=== PATIENT | female | born 1950 | race Caucasian/White ===

== ENCOUNTER 2018-11-24 08:07 | Emergency (ER) | payer MEDICARE ==
[2018-11-24 08:14] VITALS: TEMP 98.3
[2018-11-24] MEDS ORDERED: SODIUM CHLORIDE 0.9% 1,000 ML IV STA ×2 (08:29)
[2018-11-24] MEDS ORDERED: ASPIRIN 81 MG PO STA (08:29)
[2018-11-24] MEDS ORDERED: MAG HYDROX/AL HYDROX/SIMETH 30 ML, HYOSCYAMINE ELIXIR 10 ML, CIMETIDINE HCL 300 MG, LID... PO STA ×4 (08:30)
[2018-11-24] MEDS ORDERED: IPRATROPIUM-ALBUTEROL 3 ML NEB INHALATION STA (08:32)
--- NOTE | 2018-11-24 08:35 | ED ---
Chest Pain HPI - General Chief Complaint: Chest Pain Stated Complaint: Chest pain Time Seen by Provider: 11/24/18 08:22 Source: patient, RN notes reviewed, old records reviewed Mode of arrival: ambulatory Limitations: no limitations - History of Present Illness Initial Comments: Patient is a 68-year-old female presents emergency department today with onset of chest discomfort, GERD-like symptoms last night. Patient reports she took multiple pain medications but with little relief. She states that now the pain is radiating up towards her jaw and neck. Patient states that she has had no cardiac history. She is recently started erythromycin for an upper respiratory infection. Patient denies any vomiting or abdominal pain. - Related Data Home Medications Medication Instructions Recorded Confirmed Allopurinol [Zyloprim] 100 mg PO HS 11/24/18 11/24/18 Cranberry Fruit Extract [Cranberry] 500 mg PO DAILY 11/24/18 11/24/18 Simvastatin [Zocor] 40 mg PO HS 11/24/18 11/24/18 metFORMIN HCL ER [Glucophage Xr] 500 mg PO DAILY 11/24/18 11/24/18 Previous Rx's Medication Instructions Recorded Amoxic-Pot Clav 875-125Mg 1 tab PO Q12HR #20 tablet 11/24/18 [Augmentin 875-125] Allergies Allergy/AdvReac Type Severity Reaction Status Date / Time clarithromycin [From Biaxin] Allergy Swelling Verified 11/24/18 08:56 Sulfa (Sulfonamide Allergy Unknown Verified 11/24/18 08:56 Antibiotics) erythromycin base AdvReac Nausea & Verified 11/24/18 08:56 Vomiting Review of Systems ROS Statement: Those systems with pertinent positive or pertinent negative responses have been documented in the HPI. ROS Other: All systems not noted in ROS Statement are negative. EKG Findings - EKG Comments: EKG Findings:: EKG shows sinus rhythm normal EKG. Ventricular rate 94 bpm. FL interval is 162 ms. QRS ration 72 ms. QT QTc is 350/437 ms. No evidence of ST elevation or T-wave inversion. Past Medical History Past Medical History: Diabetes Mellitus, Hyperlipidemia Additional Past Medical History / Comment(s): gout History of Any Multi-Drug Resistant Organisms: None Reported Additional Past Surgical History / Comment(s): 6 foot surgeries Past Psychological History: No Psychological Hx Reported Smoking Status: Current every day smoker Past Alcohol Use History: Rare Past Drug Use History: None Reported General Exam - General Exam Comments Initial Comments: Patient is a 68-year-old female. Patient appears in moderate discomfort. Limitations: no limitations General appearance: alert, in no apparent distress Head exam: Present: atraumatic, normocephalic, normal inspection Eye exam: Present: normal appearance ENT exam: Present: normal exam, mucous membranes moist Neck exam: Present: normal inspection. Absent: tenderness, meningismus, lymphadenopathy Respiratory exam: Present: wheezes. Absent: normal lung sounds bilaterally, respiratory distress, rales, rhonchi, stridor Cardiovascular Exam: Present: regular rate, normal rhythm, normal heart sounds. Absent: systolic murmur, diastolic murmur, rubs, gallop, clicks GI/Abdominal exam: Present: soft, normal bowel sounds. Absent: distended, tenderness, guarding, rebound, rigid Extremities exam: Present: normal inspection, full ROM, normal capillary refill. Absent: tenderness, pedal edema, joint swelling, calf tenderness Back exam: Present: normal inspection Neurological exam: Present: alert, oriented X3, CN II-XII intact Psychiatric exam: Present: normal affect, normal mood Skin exam: Present: warm, dry, intact, normal color. Absent: rash Course Vital Signs 11/24/18 11/24/18 11/24/18 08:10 08:30 08:40 Temperature 98.3 F Pulse Rate 100 93 Respiratory 22 20 20 Rate Blood Pressure 164/97 153/88 O2 Sat by Pulse 94 L Oximetry 11/24/18 11/24/18 11/24/18 09:00 09:13 09:23 Temperature Pulse Rate 96 92 92 Respiratory 20 Rate Blood Pressure 131/80 O2 Sat by Pulse 97 Oximetry 11/24/18 11/24/18 11/24/18 09:30 10:00 10:30 Temperature Pulse Rate 89 102 H 101 H Respiratory 18 20 20 Rate Blood Pressure 135/88 141/91 137/83 O2 Sat by Pulse 97 97 97 Oximetry Chest Pain MDM - MDM Chest x-ray shows correlate for bronchitis reactive airway disease. Follow-up is indicated. Disposition Clinical Impression: Chest pain, Sinusitis Disposition: Left Against Medical Advice Condition: Stable Instructions (If sedation given, give patient instructions): Chest Pain (ED), Gastroesophageal Reflux Disease (ED) Additional Instructions: Follow-up with primary care physician and cardiology. Return to emergency department if any alarming signs or symptoms occur. Prescriptions: Amoxic-Pot Clav 875-125Mg [Augmentin 875-125] 1 tab PO Q12HR #20 tablet Is patient prescribed a controlled substance at d/c from ED?: No Referrals: Nonstaff,Physician [Primary Care Provider] - 1-2 days Chhaya Bahena MD [STAFF PHYSICIAN] - 1-2 days Time of Disposition: 11:41
[2018-11-24 08:49] LABS: Basophils # (A) 0.1 k/uL (0-0.2); Basophils % (A) 1 %; Eosinophils # (A) 0.2 k/uL (0-0.7); Eosinophils % (A) 2 %; HCT 42.8 % (34.0-46.0); HGB 14.5 gm/dL (11.4-16.0); Lymphocytes # (A) 3.8 k/uL (1.0-4.8); Lymphocytes % (A) 27 %; MCH 33.1 pg (25.0-35.0); MCHC 33.8 g/dL (31.0-37.0); MCV 97.9 fL (80.0-100.0); Mean Platelet Volume 6.9; Monocytes # (A) 0.7 k/uL (0-1.0); Monocytes % (A) 5 %; Neutrophils # (A) 9.2 k/uL (1.3-7.7); Neutrophils % (A) 65 %; Platelet Count 303 k/uL (150-450); RBC 4.37 m/uL (3.80-5.40); RDW 14.2 % (11.5-15.5); WBC 14.3 k/uL (3.8-10.6)
[2018-11-24 09:01] LABS: Albumin 4.4 g/dL (3.5-5.0); Calcium 10.3 mg/dL (8.4-10.2); Magnesium 1.9 mg/dL (1.6-2.3); Potassium 4.2 mmol/L (3.5-5.1); Total Bilirubin 0.3 mg/dL (0.2-1.3); Total Protein 7.4 g/dL (6.3-8.2)
[2018-11-24 09:02] LABS: INR 0.8 (<1.2); Prothrombin Time 9.4 sec (9.0-12.0)
[2018-11-24 09:03] LABS: Partial Thromboplastin Time 23.1 sec (22.0-30.0)
--- NOTE | 2018-11-24 09:08 | XR ---
EXAMINATION TYPE: XR chest 2V DATE OF EXAM: 11/24/2018 COMPARISON: NONE HISTORY: Chest pain, cough TECHNIQUE: Frontal and lateral views of the chest are obtained. FINDINGS: There are overlying cardiac leads. No evident airspace disease, pneumothorax, or pleural e ffusion. Cardiac mediastinal silhouette, pulmonary vascularity and brenden within normal limits. Promine nt lung volumes suggest underlying COPD. There is a mild spinal curvature. Thoracic spondylosis is pr esent. There is bronchial wall thickening. IMPRESSION: Correlate for bronchitis, reactive airways disease, follow-up as indicated.
[2018-11-24 10:32] LABS: Appearance,Urine Cloudy (Clear); Bacteria,Urine Rare /hpf; Bilirubin,Urine Negative (Negative); Blood,Urine Negative (Negative); Color,Urine Colorless; Glucose,Urine (UA) Negative (Negative); Ketones,Urine Negative (Negative); Leukocyte Esterase,Urine Negative (Negative); Mucus,Urine Rare /hpf; Nitrite,Urine Negative (Negative); Protein,Urine Negative (Negative); Specific Gravity,Urine 1.004 (1.001-1.035); Squamous Epithelial Cell,Urine 15 /hpf (0-4); Urobilinogen,Urine <2.0 mg/dL (<2.0); WBC,Urine 3 /hpf (0-5)
[2018-11-24 11:55] VITALS: BP 113/69; PULSE 95; RESP 18
== END 2018-11-24 11:55 | disposition left against medical advice (07) ==
LOC: EC 08:07
DX: J32.9 Chronic sinusitis, unspecified (principal); R07.89 Other chest pain; E11.9 Type 2 diabetes mellitus without complications; E78.5 Hyperlipidemia, unspecified; M10.9 Gout, unspecified; F17.200 Nicotine dependence, unspecified, uncomplicated; Z79.84 Long term (current) use of oral hypoglycemic drugs; Z79.899 Other long term (current) drug therapy; Z88.1 Allergy status to other antibiotic agents; Z88.2 Allergy status to sulfonamides; Z53.29 Procedure and treatment not carried out because of patient's decision for other reasons
CPT/HCPCS: 36415; 71046; 80053; 81001; 82150; 83690; 83735; 83880; 84484; 85025; 85610; 85730; 93005; 94640; 96360; 96361; 99285